=== PATIENT | female | born 2000 | race Caucasian/White ===

== ENCOUNTER → 2022-03-19 13:44 | Outpatient (CLI) | payer BC, SELFPAY ==
--- NOTE | ~2022-03-19 | US_ITS ---
EXAMINATION: US renal BI DATE: 03/19/2022 14:14 INDICATION: HEMATURIA TECHNIQUE: Multiple grayscale and Doppler ultrasound images of the kidneys were obtained. COMPARISON: CT abdomen and pelvis 10/24/2017 FINDINGS: The right kidney measures 13.9 x 5.6 x 5.4 cm. The left kidney measures 12.3 x 6.6 x 5.6 cm. The kidn eys demonstrate normal parenchymal echogenicity. Resistive indices in the upper, mid, and lower poles in the right kidney are: 0.72, 0.68, and 0.61; and in the left kidney are 0.66, 0.66, and 0.68. Ther e is mild right hydronephrosis. The bladder is normal. IMPRESSION: Mild right hydronephrosis, otherwise unremarkable renal sonogram findings. Reviewed, dictated and finalized at location [facility]
== END ==
PROVIDERS: PCP Advanced Practice Midwife; Visit Provider Advanced Practice Midwife
DX: M54.50 Low back pain, unspecified (principal)
CPT/HCPCS: 76775

== ENCOUNTER 2022-05-25 10:00 | Outpatient (CLI) | payer OTHER, SELFPAY ==
[2022-05-25 10:23] LABS: Hematocrit 36.7 % (37.0-47.0); Hemoglobin 12.2 g/dL (12.0-15.0); Mean Corpuscular HGB Conc 33.2 g/dl (32-36); Mean Corpuscular Hemoglobin 29.3 pg (26-34); Mean Platelet Volume 9.5 fl (7.4-10.4); Platelet Count Result 253 k/mm3 (150-375); Red Blood Count 4.17 M/mm3 (4.2-5.4); Red Cell Distribution Width 15.2 % (11.5-14.5); White Blood Count 10.7 K/mm3 (4.5-10.0)
[2022-05-26 10:04] LABS: Rapid Plasma Reagin Non-Reactive (NonReactive)
== END 2022-05-25 10:01 | disposition home or self-care (01) ==
PROVIDERS: PCP Advanced Practice Midwife; Visit Provider Obstetrics & Gynecology
DX: Z34.90 Encounter for supervision of normal pregnancy, unspecified, unspecified trimester (principal); Z3A.00 Weeks of gestation of pregnancy not specified
CPT/HCPCS: 36415; 85027; 86592; 86850; 86900; 86901

== ENCOUNTER 2022-05-26 04:49 | Inpatient (IN) | payer OTHER, SELFPAY ==
[2022-05-26] VITALS (62 sets, daily range): BP systolic 97–149; BP diastolic 60–127; PULSE 78–109; RESP 12–16; TEMP 36.4–37.3; O2SAT 95–100; BMI 49.0
[2022-05-26] MEDS: LACTATED RINGERS 1,000 ML 125 ML IV CONT (06:12)
--- NOTE | 2022-05-26 06:22 | LDADM ---
This patient, Halina Lock, was admitted to Labor/Delivery/Recovery 120 on 05/26/22 at 04:49. Plans for labor, pain management and were discussed with patient. Patient/family oriented to hospital policies and general routines including ID bracelet, bed and alarms, visiting hours, pain management, procedures, bathroom and other care routines, personal items, smoking policy, room service/diet and guest tray routines, infant security routines, and visiting hours. Patient/Family are encouraged to report perceived risks to care and to ask questions if they do not understand what they are told or what they should do. See OBIX for further documentation.
--- NOTE | 2022-05-26 06:52 | PM.IMHP ---
H&P: HPI History of Present Illness Date/Time: 05/26/22 06:52 Chief Complaint: Previous Narrative: this patient is a 22-year-old multiparous female at 38 weeks gestation with history of previous delivery. Who agreed to repeat delivery. She understands the risk of the surgery. she understands that risks include injury to her that could result in prolonged hospitalization, severe illness, and more surgery. She understands risk of hemorrhage and infection. Review of Systems Review of Systems: All systems reviewed & are unremarkable except as noted in HPI and below Constitutional: Constitutional: Denies chills, Denies fatigue, Denies fever(s) and Denies weakness Eyes: Eyes: Denies blurry vision, Denies change in vision, Denies loss of peripheral vision, Denies loss of vision, Denies other visual disturbances and Denies eye pain ENT: Denies vertigo, Denies dizziness, Denies hearing loss, Denies mouth pain, Denies nasal obstruction, Denies neck mass and Denies neck pain Cardiovascular: Cardiovascular: Denies chest pain, Denies diaphoresis, Denies syncope, Denies leg edema and Denies dyspnea Respiratory: Respiratory: Denies chest congestion, Denies cough, Denies hemoptysis, Denies dyspnea and Denies wheezing Gastrointestinal: Gastrointestinal: Denies abdominal pain, Denies constipation, Denies diarrhea, Denies nausea and Denies vomiting Genitourinary: Genitourinary: Denies hematuria, Denies change in libido, Denies nocturia, Denies genital lesions, Denies flank pain and Denies urinary urgency Musculoskeletal: Musculoskeletal: Denies abnormal gait, Denies back pain, Denies myalgias, Denies arthralgias, Denies joint swelling, Denies muscle weakness and Denies neck pain Integumentary/Breasts: Skin/Breast: Denies swelling, Denies breast pain, Denies breast mass, Denies dry skin, Denies nipple discharge, Denies unusual bruising and Denies jaundice Neurologic: Denies Neuro-related abnormal movements, Denies Abnormal speech present, Denies abnormal gait, Denies behavioral changes, Denies confusion, Denies vertigo, Denies dizziness, Denies syncope, Denies loss of vision, Denies memory loss, Denies convulsions and Denies weakness Psychiatric: Psychiatric: Denies abnormal sleep pattern, Denies behavioral changes, Denies change in libido, Denies confusion, Denies depression, Denies anhedonia and Denies memory loss Endocrine: Endocrine: Reports no additional endocrine complaints, Denies change in libido and Denies fatigue Hematologic/Lymphatic: Hematologic/Lymphatic: Reports no additional hematologic/lymphatic complaints Allergic/Immunologic: Allergic/Immunologic: Reports no additional allergic/immunologic complaints and Denies wheezing [facility] Family History Family History (Updated 05/19/22 @ 12:40 by Phyllis Kilgore RN) Grandparent Diabetes mellitus Cirrhosis Social History Social History Smoking status: Never smoker Second hand tobacco smoke exposure: No Substance use: never Lack of Transportation: No Lack of Food: Never True Current Housing: I Have Housing Concerned About Future Housing: No Difficulty Paying Gas/Electric Bills: No Difficulty Paying for Meds: No Currently Unemployed: No Education: High School Diploma/GED Difficulty w/ Childcare or Family Care: No Spiritual care concerns: No Meds Home Medications and Allergies Home Medications Medication Instructions Recorded Confirmed Type labetalol 100 mg tablet 100 mg PO Q12H 05/19/22 05/19/22 History vits no.126-ferrous fum 1 tablet PO DAILY 05/19/22 05/26/22 History 28 mg iron-folic acid 800 mcg tablet (Classic ) Allergies Allergy/AdvReac Type Severity Reaction Status Date / Time No Known Allergies Allergy Verified 05/19/22 12:37 Vital Signs Vital Signs - 24 hr 05/26/22 05:05 05/26/22 05:10 05/26/22 05:15 Pulse Rate 97 Blood Pressure 135/84 Pulse Oximetry 98 99 9
--- NOTE | 2022-05-26 06:54 | P.PNAN_ITS ---
Anes - Initial Pre Proc Eval Procedure: Operation Date: 05/26/22 07:30 Proposed Procedures p Repeat Section - Hernan Garduno MD Date/Time: 05/26/22 06:54 Surgeon: Hernan Garduno MD Pre Op Diagnosis: c/s Patient Data Age: 22 Gender: F Height: 1.68 m Weight: 137.72 kg Last Vital Signs Pulse 94 05/26/22 05:30 BP 130/76 05/26/22 05:30 Pulse Ox 99 05/26/22 05:35 Allergies Allergy/AdvReac Type Severity Reaction Status Date / Time No Known Allergies Allergy Verified 05/19/22 12:37 Home Medications Medication Instructions Recorded Confirmed Type labetalol 100 mg tablet 100 mg PO Q12H 05/19/22 05/19/22 History vits no.126-ferrous fum 1 tablet PO DAILY 05/19/22 05/26/22 History 28 mg iron-folic acid 800 mcg tablet (Classic ) Patient hx anesthesia problems: none Family hx anesthesia problems: none Results Review: All pre-operative results and documents have been reviewed as part of the pre- operative evaluation. [facility] Past Medical History Medical History (Updated 05/26/22 @ 06:55 by Chris Medina MD) HTN (hypertension) Morbid obesity Surgical History Surgical History (Updated 05/26/22 @ 06:55 by Chris Medina MD) History of section Family History Family History Grandparent Diabetes mellitus Cirrhosis Social History Social History Smoking status: Never smoker Second hand tobacco smoke exposure: No Substance use: never Lack of Transportation: No Lack of Food: Never True Current Housing: I Have Housing Concerned About Future Housing: No Difficulty Paying Gas/Electric Bills: No Difficulty Paying for Meds: No Currently Unemployed: No Education: High School Diploma/GED Difficulty w/ Childcare or Family Care: No Spiritual care concerns: No Anes - Eval Final PreProcedure Day of Procedure 05/26/22 06:54 Patient weight: morbidly obese Heart: regular rate and rhythm Lungs: clear to auscultation Airway: Mallampati scale class II Neurological: alert and oriented Last oral intake: >/= 8 hours ASA classification: III Emergent: no Anesthetic plan: proceed Anesthesia type and monitoring: general GIVS and standard monitoring Results Review: All pre-operative results and documents have been reviewed as part of the pre- operative evaluation. Informed Consent: The patient's anesthetic plan and its attendant risks and benefits were discussed with the patient/family/POA. Questions were solicited and answers provided to the satisfaction of the patient/family/POA.
--- NOTE | 2022-05-26 06:54 | WPDHPUPDATE1 ---
History and Physical Update Update Date/Time: 05/26/22 06:54 History and Physical has been reviewed, including an updated exam of the patient. There are NO changes in the patient's condition. Risks, benefits, and alternatives have been discussed and questions answered. Patient agrees to proceed with procedure.
[2022-05-26] MEDS: ceFAZolin 3 GM/D5W 100 ML 100 ML IVPB (06:57)
--- NOTE | 2022-05-26 08:26 | W.PM.PROC2 ---
Procedure Note - Detailed Date of Procedure 05/26/22 Pre-op Diagnosis Term , previous , breech Post-op Diagnosis Same Procedure Performed Low-transverse section Surgeon Hernan Garduno MD Anesthesia Spinal Indications breech Findings Normal gestational maternal anatomy, average size infant, normal Apgars. Description of Procedure The patient was taken the operating room. She was prepped and draped in dorsal supine position with a leftward tilt. This was done after spinal anesthetic was applied. A low-transverse skin incision was made and carried down till of the fascia with the knife. The fascial incision was made with the knife. The fascial incision was extended laterally with Coker scissors. The fascia was tented upward superiorly and inferiorly the rectus muscles were dissected off bluntly. The rectus muscles were the midline. The preperitoneal fat and peritoneum were dissected open bluntly at the superior aspect of the rectus muscles. The peritoneal incision was extended superior and inferior with good position of bladder. The uterine incision was made with a scalpel down to the level of the amniotic cavity. The amniotic cavity was entered bluntly. The was delivered. The cord was clamped and cut and the infant was handed off to waiting pediatric staff. Cord bloods were obtained. The placenta was removed manually. The uterus was exteriorized. The uterus was cleared of all clots, debris and membranes. The uterus was closed in 0 Vicryl running lock fashion. An imbricating over a was placed along the incision line as well. The uterus was returned to the abdomen. The gutters were cleared of all clots and debris. The fascia was closed with 0 Vicryl running fashion. The subcutaneous tissue was irrigated pinpoint bleeders were cauterized. The skin was closed with subcuticular absorbable ladonna. The skin incision line was covered with glue. The patient tolerated the procedure well. She has taken recovery room in stable condition. Sponge lap and needle counts were correct x2. Estimated Blood Loss 450 Complications No immediate complications Condition Stable Disposition PACU
[2022-05-26] MEDS: OXYTOCIN 30 UNITS/NS 500 ML 30 UNITS/500 ML BAG 125 UNITS IV CONT (08:37)
[2022-05-26] MEDS: KETOROLAC 30 MG/ML VIAL (*BKC) IV PUSH (08:42)
[2022-05-26] MEDS: fentaNYL CITRATE INJ (*CRX) 100 MCG/2 ML VIAL 25 MCG IV PUSH ×5 (09:00→10:35)
[2022-05-26 10:02] LABS: Amphetamine Screen Urine Negative (Negative); Barbiturate Screen Urine Negative (Negative); Benzodiazepines Screen Urine Negative (Negative); Cannabinoid Screen Urine Negative (Negative); Cocaine Screen Urine Negative (Negative); Methadone Screen Urine Negative (Negative); Opiate Screen Urine Negative (Negative); Phencyclidine Screen Urine Negative (Negative)
[2022-05-26] MEDS: HYDROcodone/acetaminophen (*CRX) 10-325 MG TABLET 1 TAB PO ×4 (11:50→21:38)
--- NOTE | 2022-05-26 11:57 | OBPPTRN ---
1042-Patient transferred to post room #280 via stretcher. Support person present. Oriented to unit, room, information board, rooming in, admission packet and security measures. Patient verbalizes understanding.
[2022-05-26] MEDS: DEXTROSE 5%/0.45% SOD CHL 1,000 ML 125 ML IV CONT (12:59)
[2022-05-26] MEDS: IBUPROFEN 600 MG TABLET PO (16:17)
[2022-05-26] MEDS: DOCUSATE SODIUM 100 MG CAPSULE PO (16:18)
[2022-05-26] MEDS: SIMETHICONE 80 MG TAB.CHEW PO ×2 (18:52→21:38)
[2022-05-26] MEDS: KCL 20 MEQ/D5/0.45% SOD CHL 1,000 ML 125 ML IV CONT (20:23)
[2022-05-27] MEDS: HYDROcodone/acetaminophen (*CRX) 10-325 MG TABLET 1 TAB PO ×7 (00:35→23:55)
[2022-05-27] MEDS: SIMETHICONE 80 MG TAB.CHEW PO ×2 (00:36→05:01)
[2022-05-27] MEDS: IBUPROFEN 600 MG TABLET PO ×5 (00:36→23:55)
[2022-05-27 05:10] VITALS: BP 140/80; PULSE 82; RESP 16; TEMP 36.5; O2SAT 99
[2022-05-27 05:23] LABS: Basophils Percent Auto 0.2 % (0.2-1.2); Eosinophils Percent Auto 0.1 % (0-4.4); Hemoglobin 9.4 g/dL (12.0-15.0); Immature Granulocyte Absolute 0.02 K/mm3 (0.00-0.031); Immature Granulocyte Percent A 0.2 % (0-0.5); Lymphocytes Absolute Auto 2.33 K/mm3 (0.9-3.2); Lymphocytes Percent Auto 27.5 % (18.3-44.2); Mean Corpuscular HGB Conc 32.4 g/dl (32-36); Mean Corpuscular Hemoglobin 28.9 pg (26-34); Mean Corpuscular Volume 89.2 fl (80-100); Mean Platelet Volume 9.6 fl (7.4-10.4); Monocytes Absolute Auto 0.5 K/mm3 (0.1-0.6); Monocytes Percent Auto 5.9 % (2.6-8.5); Neutrophils Absolute Auto 5.6 K/mm3 (1.3-6.7); Neutrophils Percent Auto 66.1 % (45.5-73.1); Platelet Count Result 187 k/mm3 (150-375); Red Blood Count 3.25 M/mm3 (4.2-5.4); Red Cell Distribution Width 15.3 % (11.5-14.5); White Blood Count 8.5 K/mm3 (4.5-10.0)
[2022-05-27 07:55] VITALS: BP 132/89; PULSE 86; RESP 16; TEMP 36.8; O2SAT 100
[2022-05-27] MEDS: MULTIVIT/MIN/PREN/FOL AC/IRON TABLET 1 TAB PO (08:45)
[2022-05-27] MEDS: POLYSACCHARIDE IRON COMPLEX 150 MG CAPSULE PO ×2 (08:45→19:10)
[2022-05-27] MEDS: DOCUSATE SODIUM 100 MG CAPSULE PO ×2 (08:45→19:10)
--- NOTE | 2022-05-27 09:16 | WPDANESPN ---
Anes - Prog Note Post-Op Date/Time: 05/27/22 09:16 Cardiovascular status: normal Respiratory status: normal Airway patency: baseline Mental status: baseline Post-Op hydration status: normal Vital Signs: Last Vital Signs Temp 98.3 F 05/27/22 07:55 Pulse 86 05/27/22 07:55 Resp 16 05/27/22 07:55 BP 132/89 05/27/22 07:55 Pulse Ox 100 05/27/22 07:55 O2 Del Method Room Air 05/26/22 11:15 Pain Score (VAS): 0/10 I/O: Intake & Output 05/26/22 05/27/22 05/27/22 23:59 07:59 15:59 Intake Total 1234 800 Output Total 500 2150 Balance 734 -1350 Laboratory Tests 05/27/22 05:05 05/26/22 05/27/22 09:36 05:05 WBC 8.5 RBC 3.25 L Hgb 9.4 L Hct 29.0 L MCV 89.2 MCH 28.9 MCHC 32.4 RDW 15.3 H Plt Count 187 MPV 9.6 Immature Gran % (Auto) 0.2 Neut % (Auto) 66.1 Lymph % (Auto) 27.5 [place] % (Auto) 5.9 Eos % (Auto) 0.1 Baso % (Auto) 0.2 Lymph # (Auto) 2.33 [place] # (Auto) 0.5 Eos # (Auto) 0.0 Baso # (Auto) 0.0 Abs Immat Gran (auto) 0.02 Absolute Neuts (auto) 5.6 Absolute Nucleated RBC 0.0 Nucleated RBC % 0.0 Urine Opiates Screen Negative Urine Methadone Screen Negative Ur Barbiturates Screen Negative Ur Phencyclidine Scrn Negative Ur Amphetamine Screen Negative U Benzodiazepines Scrn Negative Urine Cocaine Screen Negative U Cannabinoids Screen Negative Post-procedural complaints: none Patient Feedback: Patient satisfied with anesthetic care.
--- NOTE | 2022-05-27 09:32 | P.PNOB_ITS ---
OB - PN: Subj Subjective Date/time seen: 05/27/22 09:32 Patient comments: no complaints, pain well controlled, tolerating diet and flatus present OB - PN: Obj Data Labs 05/27/22 05:05 Labs: Laboratory Results - last 24 hr 05/26/22 05/27/22 09:36 05:05 WBC 8.5 RBC 3.25 L Hgb 9.4 L Hct 29.0 L MCV 89.2 MCH 28.9 MCHC 32.4 RDW 15.3 H Plt Count 187 MPV 9.6 Immature Gran % (Auto) 0.2 Neut % (Auto) 66.1 Lymph % (Auto) 27.5 [place] % (Auto) 5.9 Eos % (Auto) 0.1 Baso % (Auto) 0.2 Lymph # (Auto) 2.33 [place] # (Auto) 0.5 Eos # (Auto) 0.0 Baso # (Auto) 0.0 Abs Immat Gran (auto) 0.02 Absolute Neuts (auto) 5.6 Absolute Nucleated RBC 0.0 Nucleated RBC % 0.0 Urine Opiates Screen Negative Urine Methadone Screen Negative Ur Barbiturates Screen Negative Ur Phencyclidine Scrn Negative Ur Amphetamine Screen Negative U Benzodiazepines Scrn Negative Urine Cocaine Screen Negative U Cannabinoids Screen Negative OB - PN A/P Plan day: 1 Comments: Post Op LTCS - no problems, routine recovery Time Spent With Patient Time: Total time spent is greater than 50% in coordination of care (as documented) at patient's floor/unit and/or counseling patient: Exam Const: General: cooperative, healthy appearing, comfortable and no acute distress Resp: Auscultation: no crackles, no rales, no rhonchi and no wheezes Cardio: Rhythm: regular rhythm Heart sounds: no click and no murmurs GI: Inspection: non-distended Auscultation: normal bowel sounds Extrem: General: normal to inspection, no pedal edema and no calf tenderness
--- NOTE | 2022-05-27 10:23 | WPDHPUPDATE1 ---
History and Physical Update Update Date/Time: 05/27/22 10:23 History and Physical has been reviewed, including an updated exam of the patient. There are NO changes in the patient's condition. Risks, benefits, and alternatives have been discussed and questions answered. Patient agrees to proceed with procedure.
--- NOTE | 2022-05-27 15:00 | PC.NURSE ---
This patient went to [facility] on therapeutic pass to visit her baby in the NICU.
--- NOTE | 2022-05-27 18:56 | PC.NURSE ---
Patient arrived back from therapeutic pass and returned to room.
[2022-05-27 19:10] VITALS: BP 144/86; PULSE 101; RESP 20; TEMP 36.7; O2SAT 99
[2022-05-28] MEDS: HYDROcodone/acetaminophen (*CRX) 5-325 MG TABLET 1 TAB PO ×3 (04:45→11:06)
[2022-05-28 07:30] VITALS: BP 147/95; PULSE 97; RESP 16; TEMP 37.4; O2SAT 99
[2022-05-28] MEDS: DOCUSATE SODIUM 100 MG CAPSULE PO (08:02)
[2022-05-28] MEDS: POLYSACCHARIDE IRON COMPLEX 150 MG CAPSULE PO (08:02)
[2022-05-28] MEDS: MULTIVIT/MIN/PREN/FOL AC/IRON TABLET 1 TAB PO (08:02)
[2022-05-28] MEDS: IBUPROFEN 600 MG TABLET PO (08:02)
--- NOTE | 2022-05-28 09:42 | PM.OBPNVD ---
OB - PN: Subj Subjective Date/time seen: 05/28/22 09:42 Patient comments: no complaints, pain well controlled, incisional pain, tolerating diet and flatus present OB - PN: Obj Data Labs 05/27/22 05:05 OB - PN A/P Plan day: 2 Plan: routine care Comments: POD#2 LTCS - no problems, Time Spent With Patient Time: Total time spent is greater than 50% in coordination of care (as documented) at patient's floor/unit and/or counseling patient: Exam Const: General: comfortable, no acute distress and alert Resp: Effort & Inspection: normal respiratory effort Auscultation: no crackles, no rales and no rhonchi Cardio: Rate: regular rate Heart sounds: no click, no murmurs and no rubs GI: Inspection: non-distended GI Palp: No Tenderness to palpation present (GI) Auscultation: normal bowel sounds Other: Incision - CDI Extrem: General: normal to inspection, no pedal edema and no calf tenderness
--- NOTE | 2022-05-28 09:43 | PM.OBDSVD ---
DS: Admitting Diagnosis Discharge Date 05/28/22 Admitting Diagnosis previous OB - DS: Summary OB Procedures : None OB Procedures Intrapartum: OB Procedures: : None Peripartum Data Procedures: Procedures Operation Date: 05/26/22 07:30 Actual Procedure Side Surgeon p Section Not Applicable Hernan Garduno MD Time Spent with Patient Time attestation: Total time spent providing and/or coordinating discharge services: Discharge Plan Discharge Discharging Clinician: Hernan Garduno Patient Disposition: Home, Self-Care Activity: pelvic rest Diet: regular Patient Instructions: Antibiotic Form Stand Alone Forms: General Discharge Information Follow-up/Referrals: Hernan Garduno MD [Physician] - Discharge Medications: New hydrocodone-acetaminophen 5-325 mg tablet 1 tablet PO Q4H PRN (Reason: pain) Qty: 25 0RF Continued labetalol 100 mg Tablet 100 mg PO Q12H Classic 28 mg iron- 800 mcg Tablet 1 tablet PO DAILY Date of admission: 05/26/22 04:49 Primary Care Provider: Leslie Last Admitting Provider: Hernan aGrduno Attending physician on admission: Hernan Garduno Condition: Stable
== END 2022-05-28 11:10 | disposition home or self-care (01) | DRG 787 ==
LOC: ANHLDR 04:51 → ANHOB2 10:57
PROVIDERS: Admitting Provider Obstetrics & Gynecology; PCP Advanced Practice Midwife; Visit Provider Obstetrics & Gynecology
PROC: 10D00Z1 Extraction of Products of Conception, Low, Open Approach (ICD-10-PCS; CPT 59514; principal; 2022-05-26 07:30)
DX: O34.219 Maternal care for unspecified type scar from previous cesarean delivery (principal); O10.92 Unspecified pre-existing hypertension complicating childbirth; O32.8XX0 Maternal care for other malpresentation of fetus, not applicable or unspecified; Z3A.38 38 weeks gestation of pregnancy; Z37.0 Single live birth
CPT/HCPCS: 36415; 80307; 85025; 85027; 86592; 86850; 86900; 86901; A9270; J0131; J0330; J0690; J1885; J2274; J2405; J2590; J2704; J3010; J3480; J7120